=== PATIENT | female | born 1960 | race Caucasian/White ===

== ENCOUNTER 2022-09-07 09:20 | Emergency (ER) | payer OTHER ==
[~2022-09-07] VITALS: Ht 167.6 cm; Wt 80.3 kg
== END 2022-09-07 13:37 | disposition home or self-care (01) ==
LOC: ER 09:20
DX: S42.211A Unspecified displaced fracture of surgical neck of right humerus, initial encounter for closed fracture (principal); S00.11XA Contusion of right eyelid and periocular area, initial encounter; S00.83XA Contusion of other part of head, initial encounter; W18.30XA Fall on same level, unspecified, initial encounter; Y93.02 Activity, running; Y92.9 Unspecified place or not applicable